=== PATIENT | male | born 1980 | race Caucasian/White ===

== ENCOUNTER 2024-04-22 13:00 | Inpatient (IN) | payer BC, OTHER ==
[2024-04-22 14:32] VITALS: BMI 24.3
[2024-04-22] MEDS ORDERED: guaiFENesin 600 MG TABLET.ER (FP) PO PRN (15:30)
[2024-04-22] MEDS ORDERED: ACETAMINOPHEN 325 MG TABLET (FP) PO PRN (15:30)
[2024-04-22] MEDS ORDERED: POLYETHYLENE GLYCOL (HEALTHYLAX) 3350 17 GM PACKET PO PRN (15:30)
[2024-04-22] MEDS ORDERED: LOPERAMIDE HCL 2 MG CAPSULE PO PRN (15:30)
[2024-04-22] MEDS ORDERED: MAG HYDROX/AL HYDROX/SIMETH 30 ML UNIT-DOSE CUP PO PRN (15:30)
[2024-04-22] MEDS ORDERED: BENZOCAINE/MENTHOL (CHLORASEPTIC ) LOZENGE MM PRN (15:30)
[2024-04-22] MEDS ORDERED: MAGNESIUM HYDROX 2400MG/30ML ORAL SUSPENSION 30 ML CUP PO PRN (15:30)
[2024-04-22] MEDS ORDERED: hydrOXYzine PAMOATE 25 MG CAPSULE (FP) PO PRN (15:30)
[2024-04-22] MEDS ORDERED: BISACODYL 5 MG TABLET.DR (FP) PO PRN (15:30)
[2024-04-22] MEDS ORDERED: DOCUSATE SODIUM 100 MG CAPSULE (FP) PO PRN (15:30)
[2024-04-22] MEDS ORDERED: BENZONATATE 200 MG CAPSULE PO PRN (15:30)
[2024-04-22] MEDS: TUBERCULIN PPD 5 TU/0.1ML SYRINGE (IN PATIENT USE ONLY) ID ONE (19:22)
[2024-04-22 21:16] LABS: PH,URINE 6.5 (5.0-8.0); URINE APPEARANCE CLEAR; URINE BILIRUBIN NEGATIVE (NEGATIVE); URINE COLOR YELLOW; URINE GLUCOSE (UA) NEGATIVE (NEGATIVE); URINE KETONE NEGATIVE (NEGATIVE); URINE LEUK ESTERASE NEGATIVE (NEGATIVE); URINE NITRITE NEGATIVE (NEGATIVE); URINE PROTEIN NEGATIVE (NEGATIVE)
[2024-04-22] MEDS: MELATONIN 5 MG TABLETS PO SCH (23:00)
[2024-04-22] MEDS: THIAMINE 100 MG TABLET PO SCH (23:00)
[2024-04-23 06:19] VITALS: PULSE 62; RESP 18
[2024-04-23 07:55] LABS: POTASSIUM 4.2 mmol/L (3.5-5.1)
[2024-04-23 07:59] LABS: ALBUMIN 3.4 g/dl (3.4-5.0); BLOOD UREA NITROGEN 15.2 mg/dL (7-18); CALCIUM 8.8 mg/dL (8.5-10.1)
[2024-04-23 08:02] LABS: CREATININE 0.9 mg/dL (0.55-1.3)
[2024-04-23 08:04] LABS: BILIRUBIN,TOTAL 0.3 mg/dL (0.2-1)
[2024-04-23] MEDS: IBUPROFEN 600 MG TABLET (FP) PO PRN (08:11)
[2024-04-23 08:17] LABS: HEMOGLOBIN 12.1 GM/dL (11.7-16.9); MCH 31.4 pg (25.7-33.7); MCHC 34.5 g/dl (32.0-35.9); MEAN CELL VOLUME 90.8 fl (80-96); MEAN PLT VOLUME 9.3 fl (7.5-11.1); PLATELET COUNT 193 10^3/uL (134-434); RBC 3.86 M/mm3 (4.00-5.60); WHITE BLOOD COUNT 6.4 K/mm3 (4.0-10.0)
[2024-04-23] MEDS: ARTIFICIAL TEARS OPHTHALMIC DROPS OU SCH (09:55)
[2024-04-23] MEDS: NICOTINE 7 MG/24 HOURS TOPICAL PATCH TD SCH (09:57)
[2024-04-23] MEDS: PRENATAL VITAMINS W/ FOLIC ACID TABLET (FP) PO SCH (09:57)
[2024-04-23] MEDS: AMOX TR/POT CLAV 875MG/125MG TABLETS (FP) PO SCH (09:58)
[2024-04-23] MEDS: NICOTINE POLACRILEX 2 MG LOZENGE BC PRN (09:58)
[2024-04-23] MEDS ORDERED: AMOX TR/POT CLAV 875MG/125MG TABLETS (FP) PO SCH ×2 (10:00)
[2024-04-23] MEDS: IBUPROFEN 400 MG TABLET (FP) PO PRN (17:25)
[2024-04-23] MEDS: QUEtiapine FUMARATE 100 MG TABLET (FP) PO SCH (23:09)
[2024-04-24 06:25] VITALS: BP 100/60; TEMP 97.6
[2024-04-24] MEDS: NICOTINE POLACRILEX 2 MG GUM BUC PRN (09:54)
== END 2024-04-24 13:55 | disposition home or self-care (01) | DRG 897 ==
LOC: YASAS 13:00 → Y3NR 15:46
PROVIDERS: ADMIT Allergy & Immunology; ATTEND Psychiatry & Neurology Pain Medicine
PROC: HZ2ZZZZ Detoxification Services for Substance Abuse Treatment (ICD-10-PCS; principal; 2024-04-22)
DX: F10.230 Alcohol dependence with withdrawal, uncomplicated (principal); F14.20 Cocaine dependence, uncomplicated; Z59.00 Homelessness unspecified; F10.282 Alcohol dependence with alcohol-induced sleep disorder; F10.280 Alcohol dependence with alcohol-induced anxiety disorder; F41.9 Anxiety disorder, unspecified; F43.10 Post-traumatic stress disorder, unspecified; U07.0 Vaping-related disorder; Z62.810 Personal history of physical and sexual abuse in childhood; Z86.19 Personal history of other infectious and parasitic diseases; Z56.0 Unemployment, unspecified
CPT/HCPCS: 36415; 80053; 80305; 80307; 81003; 85027; 86780; 87811; 93005; 93010